=== PATIENT | female | born 1945 | race Caucasian/White ===

== ENCOUNTER → 2022-12-22 10:14 | Outpatient (REF) | payer MEDICARE, SELFPAY ==
--- NOTE | 2022-12-22 10:20 | CA_ITS ---
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 Normal LV systolic function with mild LVH with impaired relaxation filling pattern elevated filling pressures 2. Mildly dilated left atrium 3. Mild aortic regurgitation with severe mitral annular calcification 4. Mildly dilated ascending aorta at 4.1 cm 5. Normal RV systolic pressure 6. No pericardial effusion Findings Left Ventricle Normal left ventricular size and systolic function. There is mildly increased left ventricular wall thickness. The visually estimated ejection fraction is between 55-60%. Spectral Doppler is indicative of an impaired relaxation filling pattern. Elevated filling pressures. E/E prime ratio is >15, consistent with elevated filling pressures. There is moderate septal asymmetric hypertrophy. Right Ventricle Normal right ventricular cavity size and systolic function. Atria The left atrium is mildly dilated. The right atrium is normal in size. Aortic Valve There is mild calcification of the aortic valve. There is no aortic valve stenosis. There is mild aortic valve regurgitation. Mitral Valve There is mild anterior and severe posterior mitral leaflet thickening. There is severe mitral annular calcification. There is trace mitral valve regurgitation. There is no mitral valve stenosis. Pulmonic Valve The pulmonic valve is likely normal. Tricuspid Valve Normal tricuspid valve structure. There is trace tricuspid valve regurgitation. Tricuspid regurgitation envelope is inadequate for calculation of right ventricular systolic pressure. Normal right atrial pressure. Great Vessels The pulmonary artery was not well visualized. There is mild dilatation of the ascending aorta measuring 4.20 cm. Venous The inferior vena cava is normal in size and collapses greater than 50% with inspiration. Pericardium/Pleural There is no evidence of pericardial effusion. Prior Study Comparison No prior study available for comparison. Measurements 2D Linear Measurements IVSd: 1.70 0.6-0.9/0.6-1.0 cm LVIDd: 4.50 3.9-5.3/4.2-5.9 cm LVIDd Index: 2.46 2.4-3.2/2.2-3.1 cm/m2 LVIDs: 2.70 2.0-3.6 cm LVPWd: 1.30 0.7-1.1 cm LA Diam: 4.40 2.7-3.8/3.0-4.0 cm LAIDs Index: 2.40 1.5-2.3 cm/m2 LV Mass: 343.98 67-162/88-224 g LV Mass Index: 187.97 43-95/49-115 g/m2 LVOT Diam: 2.10 3.0+(-)1.3 cm 2D Systolic Function EF 2C: 57.80 >55% Mitral Valve MV VTI: 0.30 MV Pk Timothy: 1.28 MV Mn Timothy: 0.82 MV Pk Grad: 7.00 MV Mn Grad: 3.00 MV Pk E: 0.61 MV PK A: 1.04 MV Decel Time: 370.00 E/A: 0.60 E'Lateral: 3.86 E'Medial: 2.80 E/E' Med: 21.90 E/E' Lat: 15.90 PHT: 108.00 MVA PHT: 2.04 MVA Continuity: 3.26 Decel [place]: 1.66 Aortic Valve AoV Pk Timothy: 1.95 AoV Mn Timothy: 1.29 AoV VTI: 0.43 AoV Pk Grad: 15.00 Aov Mn Grad: 8.00 ZAK Cont.VTI: 2.26 AI Pk Timothy: 5.06 AI [place]: 3.31 LVOT LVOT Pk Timothy: 1.28 LVOT Mn Timothy: 0.84 LVOT VTI: 0.28 LVOT Pk Grad: 7.00 LVOT Mn Grad: 3.00 LVOT Diam: 2.10 LVOT Area: 3.46 Diastolic Function MV Pk E: 0.61 MV Pk A: 1.04 E/A: 0.60 E'Medial: 2.80 E/E' Med: 21.90 E' Laterial: 3.86 E/E' Lat: 15.90 Right Ventricle TAPSE (mm): 23.00 TVS' [place]: 11.40 Tricuspid Valve RA Press: 3.00 Great Vessels Aorta Sinus of Valsalva: 3.20 2.0-3.5 cm Ao Asc: 4.20 2.1-3.4 cm Pulmonary Veins Pulm Vein S/D 1.70 Pulmonary Valve PV Pk Timothy: 1.10 Peak PV Grad: 5.00 Updated in Other Vendor System with Status of Final Ricardo Ventura MD electronically signed on 12/22/2022 3:01:31 PM with status of Final
== END ==
LOC: HO.CARD 10:14
PROVIDERS: PCP Family Medicine; Visit Provider Family Medicine
DX: I50.9 Heart failure, unspecified (principal)
CPT/HCPCS: 93306

== ENCOUNTER → 2022-12-22 10:20 | Outpatient (BNV) | payer MEDICARE, SELFPAY | PROVIDERS: PCP Family Medicine; Visit Provider Internal Medicine Cardiovascular Disease | DX: I35.1 Nonrheumatic aortic (valve) insufficiency (principal); I34.81 Nonrheumatic mitral (valve) annulus calcification | CPT/HCPCS: 93306 ==